=== PATIENT | female | born 1945 | race Caucasian/White ===

== ENCOUNTER 2022-04-12 05:40 | Day surgery (SDC) | payer MEDICARE, OTHER ==
[2022-04-07 15:21] LABS: BASOPHILS % (AUTO) 0.4 % (0-1); EOSINOPHILS # (AUTO) 0.1 X10'3 (0-0.9); EOSINOPHILS % (AUTO) 1.5 % (0-6); LYMPHOCYTES # (AUTO) 0.9 X10'3 (1.1-4.8); LYMPHOCYTES % (AUTO) 11.4 % (21-51); MEAN CORPUSCULAR HEMOGLOBIN 28.6 PG (27.0-31.0); MEAN PLATELET VOLUME 7.8 FL (7.4-10.4); MONOCYTES # (AUTO) 0.5 X10'3 (0-0.9); MONOCYTES % (AUTO) 6.2 % (2-12); NEUTROPHILS # (AUTO) 6.5 X10'3 (1.8-7.7); NEUTROPHILS % (AUTO) 80.5 % (42-75); PRE OP HEMATOCRIT 42.5 % (35.0-45.0); PRE OP HEMOGLOBIN 14.5 g/dL (12.0-16.0); PRE OP PLATELET COUNT 158 X10'3 (140-440); RED BLOOD COUNT 5.06 X10'6 (4.20-5.60); RED CELL DISTRIBUTION WIDTH 14.7 % (11.5-14.5)
[2022-04-07 15:39] LABS: ALBUMIN 4.3 G/DL (3.4-5.0); ALBUMIN/GLOBULIN RATIO 1.3 (1.1-1.5); ALKALINE PHOSPHATASE 70 IU/L (46-116); BLOOD UREA NITROGEN 17 MG/DL (7-18); BUN/CREATININE RATIO 24.3 (6.6-38.0); CALCIUM 9.1 MG/DL (8.5-10.1); CHLORIDE 107 MMOL/L (99-107); PRE OP ALT 21 U/L (30-65); PRE OP ANION GAP 8 (8-16); PRE OP AST 14 U/L (10-37); PRE OP BILIRUB, TOTAL 0.5 MG/DL (0.0-1.0); PRE OP GLUCOSE 91 MG/DL (70-104); PRE OP POTASSIUM 3.8 MMOL/L (3.4-5.1); PRE OP SODIUM 142 MMOL/L (135-145); TOTAL CARBON DIOXIDE 26.8 MMOL/L (24-32); TOTAL PROTEIN 7.7 G/DL (6.4-8.2); eGFR 81 ML/MIN
[~2022-04-12] VITALS: Ht 165.1 cm; Wt 76.9 kg
[~2022-04-12 05:40] MED LIST: ALBU6.7H14 INH; CALC200T PO; CELE-193 PO; CYCL1DRO OP; DET2LAC PO; DICL100G15 TOP; DOCU100C40 PO; GLUC-95 PO; HYDR-4353 PO; LEVO125T8 PO; LOSA100T3 PO; MAGN400C PO; MELA10TA PO; METH-798 PO; MIRA50TA PO; MULT-1074 PO; NYST15PO4 TOP; OMEP20CA15 PO; POLY119P2 PO; POTASSIUM PO; ROSU10TA28 PO; TRAZ-256 PO; ceFAZolin inj. 2,000 MG in dextrose 5%-water 100 ML IV ONE; famotidine 20mg tablet PO ONE; ringers solution, lacted 1,000 ML IV SCH
[2022-04-12 07:00] VITALS: BP 137/76
[2022-04-12] MEDS ORDERED: LIDOcaine 1% 30ml preserv. free vial ONE (07:01)
[2022-04-12] MEDS ORDERED: MIDAZolam 1 MG/ML 5ML VIAL ONE (08:13)
[2022-04-12] MEDS ORDERED: fentaNYL/PF 50MCG/1 ML 2ML syringe ONE (08:13)
[2022-04-12] MEDS ORDERED: ketorolac trometh. 30mg/ml inj. ONE (08:54)
[2022-04-12 09:03] VITALS: BP 126/56
--- NOTE | 2022-04-12 09:03 | NUR ---
Received from OR via [facility], accompanied by Anesthesiologist DR VALDEZ and report given by Anesthesiologist. PT AWAKE, DENIES PAIN. RIGHT HAND/WRIST/THUMB W/SPLINT, TARAN WRAP TO MID FOREARM CDI, FINGERS PWD, MILLER HEAD WET PROCESS 1-2 SECONDS. Addendum: 04/12/22 at 0915 by Joselin Rodgers RN Amended: Links added.
[2022-04-12 09:10] VITALS: BP 128/56
[2022-04-12 09:20] VITALS: BP 124/74
[2022-04-12 09:30] VITALS: BP 117/66
[2022-04-12 09:40] VITALS: BP 127/70
--- NOTE | 2022-04-12 09:53 | NUR ---
PT UP AND ABLE TO AMBULATE SAFELY, VOIDED. D/C INSTRUCTIONS GIVEN AND GONE OVER W/PT WHO VERBALIZED UNDERSTANDING. PT D/CD TO HOME VIA W/C TO PRIVATE VEHICLE W/O INCIDENT. Addendum: 04/12/22 at 1111 by Joselin Rodgers RN Amended: Links added.
== END 2022-04-12 09:53 | disposition home or self-care (01) ==
LOC: PAS 05:40
PROVIDERS: ATTEND Orthopaedic Surgery Hand Surgery
DX: M18.11 Unilateral primary osteoarthritis of first carpometacarpal joint, right hand (principal); I10 Essential (primary) hypertension; M19.90 Unspecified osteoarthritis, unspecified site; Z85.3 Personal history of malignant neoplasm of breast; Z79.899 Other long term (current) drug therapy; Z98.890 Other specified postprocedural states; Z90.710 Acquired absence of both cervix and uterus; Z72.89 Other problems related to lifestyle
CPT/HCPCS: 25312; 25447; 36415; 80053; 82948; 85025; 93005; J0690; J1885; J2250; J3010; J3490; J7030; J7060; J7120; Z7506; Z7512; A4215; A4618; A7000